=== PATIENT | female | born 1985 | race Caucasian/White ===

== ENCOUNTER 2016-12-09 19:50 | Emergency (ER) | payer OTHER ==
[2016-12-09 20:01] VITALS: TEMP 98.7
--- NOTE | 2016-12-09 20:17 | ED ---
Female Urogenital HPI - General Chief complaint: Vaginal Bleeding Stated complaint: 9 weeks /Bleeding/Abd Pain Time Seen by Provider: 12/09/16 20:04 Source: patient, RN notes reviewed Mode of arrival: ambulatory Limitations: no limitations - History of Present Illness Initial comments: 31-year-old female presents for vaginal bleeding and abdominal pain in . Patient states that she's had this for the past day or so. Patient states that she has had a confirmed IUP about 6 weeks and now she is 9 weeks . Patient states that she is a . Patient states she is currently smoking. Patient states that the bleeding has been very mild and spotting. Patient states that she was concerned due to the fact that it continued for the past day so she thought that she should be seen. Patient states that there is no other symptoms at this time. Patient denies any other vaginal discharge she denies any changes in urination any nausea or vomiting. Patient denies any recent fever, chills, shortness of breath, chest pain, back pain, nausea vomiting, numbness or tingling, dysuria or hematuria, constipation or diarrhea, headaches or visual changes, or any other current symptoms. - Related Data Home Medications Medication Instructions Recorded Confirmed Albuterol Inhaler [Ventolin Hfa 1 - 2 puff INHALATION RT-Q6H PRN 12/09/16 Inhaler] Allergies Allergy/AdvReac Type Severity Reaction Status Date / Time No Known Allergies Allergy Verified 12/09/16 20:16 Review of Systems ROS Statement: Those systems with pertinent positive or pertinent negative responses have been documented in the HPI. ROS Other: All systems not noted in ROS Statement are negative. Past Medical History Past Medical History: No Reported History Additional Past Medical History / Comment(s): chronic back pain History of Any Multi-Drug Resistant Organisms: None Reported Past Surgical History: No Surgical Hx Reported Past Psychological History: Anxiety, Bipolar, Depression, Panic Disorder, Schizoaffective Disorder Smoking Status: Current every day smoker Past Alcohol Use History: Occasional Past Drug Use History: Cocaine, Heroin, IV Drug Use, Marijuana, Methamphetamine , Opiates, Prescription Drug Abuse General Exam - General Exam Comments Initial Comments: General: The patient is awake and alert, in no distress, and does not appear acutely ill. Eye: Pupils are equal, round and reactive to light, extra-ocular movements are intact; there is normal conjunctiva bilaterally. No signs of icterus. Ears, nose, mouth and throat: There are moist mucous membranes and no oral lesions. Neck: The neck is supple, there is no tenderness. Cardiovascular: There is a regular rate and rhythm. No murmur, rub or gallop is appreciated. Respiratory: Lungs are clear to auscultation, respirations are non-labored, breath sounds are equal. No wheezes, stridor, rales, or rhonchi. Gastrointestinal: Soft, non-distended, non-tender abdomen without masses or organomegaly noted. There is no rebound or guarding present. No CVA tenderness. Bowel sounds are unremarkable. Back: There is no tenderness to palpation in the midline. There is no obvious deformity. No rashes noted. Musculoskeletal: Normal ROM, no tenderness, There is no pedal edema. There is no calf tenderness or swelling. Sensation intact. Pulses equal bilaterally 2+. Neurological: CN II-XII intact, There are no obvious motor or sensory deficits. Coordination appears grossly intact. Speech is normal. Skin: Skin is warm and dry and no rashes or lesions are noted. Psychiatric: Cooperative, appropriate mood & affect, normal judgment. Limitations: no limitations Course Vital Signs 12/09/16 19:58 Temperature 98.7 F Pulse Rate 97 Respiratory 18 Rate Blood Pressure 120/56 O2 Sat by Pulse 100 Oximetry Medical Decision Making - Medical Decision Making 31-year-old female presents for vaginal bleeding in . At this time ultrasound is read as showing subchorionic bleed. This time patient was educated about this. She will undergo STD testing she states she'll do the breast of the testing with the [employer]. Discussed return parameters discussed. We discussed follow-up on results. Patient stated that she understood all questions have been answered. She will be discharged. - Lab Data Result diagrams: 12/09/16 20:16 12/09/16 20:16 Lab Results 12/09/16 12/09/16 12/09/16 Range/Units 20:16 20:16 20:16 WBC 6.6 (3.8-10.6) k/uL RBC 4.25 (3.80-5.40) m/uL Hgb 13.2 (11.4-16.0) gm/dL Hct 38.4 (34.0-46.0) % MCV 90.3 (80.0-100.0) fL MCH 31.1 (25.0-35.0) pg MCHC 34.4 (31.0-37.0) g/dL RDW 13.2 (11.5-15.5) % Plt Count 251 (150-450) k/uL Neutrophils % 66 % Lymphocytes % 25 % Monocytes % 4 % Eosinophils % 2 % Basophils % 0 % Neutrophils # 4.4 (1.3-7.7) k/uL Lymphocytes # 1.7 (1.0-4.8) k/uL Monocytes # 0.3 (0-1.0) k/uL Eosinophils # 0.1 (0-0.7) k/uL Basophils # 0.0 (0-0.2) k/uL Sodium 138 (137-145) mmol/L Potassium 3.8 (3.5-5.1) mmol/L Chloride 109 H (98-107) mmol/L Carbon Dioxide 20 L (22-30) mmol/L Anion Gap 9 mmol/L BUN 6 L (7-17) mg/dL Creatinine 0.50 L (0.52-1.04) mg/dL Est GFR (MDRD) Af Amer >60 (>60 ml/min/1.73 sqM) Est GFR (MDRD) Non-Af >60 (>60 ml/min/1.73 sqM) Glucose 100 H (74-99) mg/dL Calcium 9.4 (8.4-10.2) mg/dL Total Bilirubin 0.3 (0.2-1.3) mg/dL AST 23 (14-36) U/L ALT 42 (9-52) U/L Alkaline Phosphatase 50 (38-126) U/L Total Protein 6.3 (6.3-8.2) g/dL Albumin 3.7 (3.5-5.0) g/dL Urine Color Urine Appearance (Clear) Urine pH (5.0-8.0) Ur Specific [place] (1.001-1.035) Urine Protein (Negative) Urine Glucose (UA) (Negative) Urine Ketones (Negative) Urine Blood (Negative) Urine Nitrate (Negative) Urine Bilirubin (Negative) Urine Urobilinogen (<2.0) mg/dL Ur Leukocyte Esterase (Negative) Urine RBC (0-5) /hpf Urine WBC (0-5) /hpf Ur Squamous Epith Cells (0-4) /hpf Urine Bacteria (None) /hpf Urine Mucus (None) /hpf Blood Type A Positive Blood Type Recheck No 12/09/16 Range/Units 21:20 WBC (3.8-10.6) k/uL RBC (3.80-5.40) m/uL Hgb (11.4-16.0) gm/dL Hct (34.0-46.0) % MCV (80.0-100.0) fL MCH (25.0-35.0) pg MCHC (31.0-37.0) g/dL RDW (11.5-15.5) % Plt Count (150-450) k/uL Neutrophils % % Lymphocytes % % Monocytes % % Eosinophils % % Basophils % % Neutrophils # (1.3-7.7) k/uL Lymphocytes # (1.0-4.8) k/uL Monocytes # (0-1.0) k/uL Eosinophils # (0-0.7) k/uL Basophils # (0-0.2) k/uL Sodium (137-145) mmol/L Potassium (3.5-5.1) mmol/L Chloride (98-107) mmol/L Carbon Dioxide (22-30) mmol/L Anion Gap mmol/L BUN (7-17) mg/dL Creatinine (0.52-1.04) mg/dL Est GFR (MDRD) Af Amer (>60 ml/min/1.73 sqM) Est GFR (MDRD) Non-Af (>60 ml/min/1.73 sqM) Glucose (74-99) mg/dL Calcium (8.4-10.2) mg/dL Total Bilirubin (0.2-1.3) mg/dL AST (14-36) U/L ALT (9-52) U/L Alkaline Phosphatase (38-126) U/L Total Protein (6.3-8.2) g/dL Albumin (3.5-5.0) g/dL Urine Color Yellow Urine Appearance Cloudy H (Clear) Urine pH 6.5 (5.0-8.0) Ur Specific [place] 1.017 (1.001-1.035) Urine Protein Trace H (Negative) Urine Glucose (UA) Negative (Negative) Urine Ketones Negative (Negative) Urine Blood Small H (Negative) Urine Nitrate Negative (Negative) Urine Bilirubin Negative (Negative) Urine Urobilinogen <2.0 (<2.0) mg/dL Ur Leukocyte Esterase Negative (Negative) Urine RBC 6 H (0-5) /hpf Urine WBC 3 (0-5) /hpf Ur Squamous Epith Cells 9 H (0-4) /hpf Urine Bacteria Rare H (None) /hpf Urine Mucus Rare H (None) /hpf Blood Type Blood Type Recheck - Radiology Data Radiology results: report reviewed, image reviewed Disposition Clinical Impression: , Subchorionic bleed Disposition: HOME SELF-CARE Condition: Stable Instructions: (ED) Additional Instructions: Please use medication as discussed. Please follow up with family doctor if symptoms have not improved over the next two days. Please return to the emergency room if your symptoms increase or worsen or for any other concerns. Referrals: None,Stated [Primary Care Provider] - 1-2 days Livia Taylor MD [STAFF PHYSICIAN] - 1-2 days Time of Disposition: 21:50
[2016-12-09 21:13] LABS: Basophils % (A) 0 %; CH 31.6; CHCM 35.2; Eosinophils # (A) 0.1 k/uL (0-0.7); Eosinophils % (A) 2 %; HCT 38.4 % (34.0-46.0); HDW 2.51; HGB 13.2 gm/dL (11.4-16.0); Luc # (Auto) 0.17; Luc % (Auto) 3; Lymphocytes # (A) 1.7 k/uL (1.0-4.8); Lymphocytes % (A) 25 %; MCH 31.1 pg (25.0-35.0); MCHC 34.4 g/dL (31.0-37.0); MCV 90.3 fL (80.0-100.0); Monocytes # (A) 0.3 k/uL (0-1.0); Monocytes % (A) 4 %; Neutrophils # (A) 4.4 k/uL (1.3-7.7); Neutrophils % (A) 66 %; RBC 4.25 m/uL (3.80-5.40); RDW 13.2 % (11.5-15.5); WBC 6.6 k/uL (3.8-10.6); WBC (Perox) 7.32
--- NOTE | 2016-12-09 21:21 | US ---
EXAMINATION TYPE: US OB <= 14 wk fetus DATE OF EXAM: 12/09/2016 9:08 PM COMPARISON: NONE CLINICAL HISTORY: Pain. Spotting EXAM PERFORMED: Transabdominal (TA) EXAM MEASUREMENTS: GESTATIONAL AGE / DATING Physician Established: Not established Dates by LMP: (10 weeks/2 days) EDC: 07/05/2017 Dates by First Scan: No previous Dates by Current Scan for: (9 weeks/2 days) EDC: 07/12/2017 MATERNAL ANATOMY Uterus: 11.9 x 7.1 x 8.0 cm Right Ovary: 3.0 x 1.9 x 2.2 cm Left Ovary: 2.8 x 1.9 x 2.1 cm Post CDS / Adnexa: wnl Presence of free fluid: No Presence of corpus luteal cyst: Not on this exam Presence of subchorionic bleed: Yes, measuring 2.3 x 1.6 x 1.2 cm GESTATION / SURVEY CRL: 2.52 cm (9 weeks/2 days) Yolk Sac (normal less than 6mm): 3 mm Heart Rate: 171 bpm Rhythm: Normal IUP: Viable IUP Date of LMP: 09/28/2016 Beta HcG (if available): Not available at time of exam TECHNOLOGIST IMPRESSION: Viable IUP with an WANDER of 07/12/2017. Probable subchorionic bleed measur ing 2.3 x 1.6 x 1.2 cm IMPRESSION: There is a small fluid collection suggestive of a subchorionic hemorrhage that measures 2.5 x 1 cm. The ultrasound gestational age is 9 weeks 2 days.
[2016-12-09 21:30] LABS: ALT 42 U/L (9-52); AST 23 U/L (14-36); Alkaline Phosphatase 50 U/L (38-126); Anion Gap 9 mmol/L; Blood Urea Nitrogen 6 mg/dL (7-17); Calcium 9.4 mg/dL (8.4-10.2); Carbon Dioxide 20 mmol/L (22-30); Chloride 109 mmol/L (98-107); Glucose 100 mg/dL (74-99); Non-African American GFR(MDRD) >60 (>60 ml/min/1.73 sqM); Potassium 3.8 mmol/L (3.5-5.1); Sodium 138 mmol/L (137-145); Total Bilirubin 0.3 mg/dL (0.2-1.3); Total Protein 6.3 g/dL (6.3-8.2)
[2016-12-09 21:45] LABS: Appearance,Urine Cloudy (Clear); Bacteria,Urine Rare /hpf; Bilirubin,Urine Negative (Negative); Glucose,Urine (UA) Negative (Negative); Ketones,Urine Negative (Negative); Leukocyte Esterase,Urine Negative (Negative); Mucus,Urine Rare /hpf; Nitrite,Urine Negative (Negative); PH, Urine 6.5 (5.0-8.0); Particle Count 9534; Protein,Urine Trace (Negative); RBC,Urine 6 /hpf (0-5); Specific Gravity,Urine 1.017 (1.001-1.035); Squamous Epithelial Cell,Urine 9 /hpf (0-4); UA Billing (MACRO vs. MICRO) MICRO; Urobilinogen,Urine <2.0 mg/dL (<2.0); WBC,Urine 3 /hpf (0-5)
[2016-12-09 22:05] VITALS: BP 112/65; PULSE 86; RESP 16
== END 2016-12-09 22:05 | disposition home or self-care (01) ==
LOC: EC 19:50
DX: O99.411 Diseases of the circulatory system complicating pregnancy, first trimester (principal); I60.9 Nontraumatic subarachnoid hemorrhage, unspecified; Z3A.09 9 weeks gestation of pregnancy; F17.200 Nicotine dependence, unspecified, uncomplicated
CPT/HCPCS: 36415; 76801; 80053; 81001; 84702; 85025; 86900; 86901; 87070; 87086; 87205; 87491; 87591; 87808; 99284

== ENCOUNTER → 2017-02-05 | Outpatient (CLI) | payer OTHER ==
--- NOTE | 2017-02-05 14:11 | US ---
EXAMINATION TYPE: US OB >= 14 wk fetus DATE OF EXAM: 02/05/2017 12:55 PM COMPARISON: 12/09/2016 CLINICAL HISTORY: 31-year-old female Z34.00 Supervision of first . Anatomy scan. TECHNIQUE: Transabdominal (TA) FINDINGS: GESTATIONAL AGE / DATING Physician Established: (18 weeks/4 days) EDC: 07/05/2017 Dates by LMP: (18 weeks/4 days) EDC: 07/05/2017 Dates by First Scan: (17 weeks/4 days) EDC: 07/12/2017 Dates by Current Scan: (17 weeks/2 days +/- 1W0D) EDC: 07/14/2017 SURVEY IUP: Single PLACENTA: Fundal/Anterior/Posterior PREVIA: No Previa OSMAR: 11.6 cm Normal CERVICAL LENGTH (transabdominal: norm > 3.0cm): 3.6 cm BIOMETRY PRESENTATION: Vertex LIE: Longitudinal BPD: 3.7 cm 17 weeks / 2 days HC: 13.5 cm 17 weeks / 0 days AC: 11.6 cm 17 weeks / 3 days FL: 2.4 cm 17 weeks / 2 days ESTIMATED WEIGHT IN GRAMS: 188.9 grams ESTIMATED WEIGHT IN LBS/OZS: 0 lbs. 7 oz. 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 Single live intrauterine with estimated gestational age of 18 weeks 4 days by LMP. Curre nt ultrasound biometry is smaller and slightly discordant (17 weeks 2 days) placing the child at <3rd percentile. However, we note that there has been appropriate interval growth from the patient's fir st scan on 12/09/2016. Correlate for accuracy of LMP. 2. survey not performed at this time due to measurements less than 18 weeks. Patient can return between 18 and 20 weeks for survey.
== END | disposition home or self-care (01) ==
LOC: RADUSWWP 12:14
PROVIDERS: ATTEND Obstetrics & Gynecology
DX: Z34.00 Encounter for supervision of normal first pregnancy, unspecified trimester (principal); Z3A.18 18 weeks gestation of pregnancy
CPT/HCPCS: 76805

== ENCOUNTER → 2017-03-05 | Outpatient (CLI) | payer OTHER ==
--- NOTE | 2017-03-05 13:45 | US ---
EXAMINATION TYPE: US OB anatomy transabd DATE OF EXAM: 03/05/2017 1:01 PM COMPARISON: US HISTORY: Z34.00 Encounter for supervision of normal pregnan Anatomy scan TECHNIQUE: Transabdominal (TA) EXAM MEASUREMENTS: GESTATIONAL AGE / DATING Physician Established: (22 weeks/4 days) EDC: 07/05/2017 Dates by LMP: (22 weeks/4 days) EDC: 07/05/2017 Dates by First Scan: (21 weeks/4 days) EDC: 07/12/2017 Dates by Current Scan for: (21 weeks/2 days) EDC: 07/14/2017 SURVEY IUP: Single PLACENTA: Anterior/Fundal PREVIA: No previa OSMAR: 14.1 cm Normal CERVICAL LENGTH (transabdominal: norm > 3.0cm): 3.3 cm BIOMETRY PRESENTATION: Vertex LIE: Longitudinal BPD: 5.1 cm 21 weeks / 4 days HC: 18.6 cm 21 weeks / 0 days AC: 15.8 cm 21 weeks / 0 days FL: 3.6 cm 21 weeks / 2 days ESTIMATED WEIGHT IN GRAMS: 398 grams ESTIMATED WEIGHT IN LBS/OZS: 0 lbs. 14 oz. WEIGHT PERCENTAGE BASED ON ESTABLISHED DATE: <3 % HC/AC: 1.18 Normal FL/AC: 22.39 Normal HEART RATE: 161 bpm RHYTHM: Normal ANATOMY SEEN (within normal limits): * Lateral Vent (< 1 cm) 0.7 cm * Cisterna Magna (< 1.1 cm) 0.5 cm * Nuchal Fold (< 0.6 cm) 0.3 cm * Cerebellum (varies with age) 2.2 cm Choroid Plexus (bilateral) Midline Falx Cavus Septi Pellucidi Four Chamber Heart Outflow tracts: LVOT/RVOT Stomach Situs Nose / Lips Diaphragm Kidneys (bilateral) Bladder Cord Insert Three Vessel Cord Longitudinal Spine Transverse Spine Arms (bilateral) Legs (bilateral) MATERNAL WALL MEASUREMENT: 4.6 cm from skin to anterior uterine wall (if exam limited due to body muniz bitus). Abnormal results called to doctors office: measuring in the <3% IMPRESSION: Viable single IUP measuring 21 weeks 2 days with a heart rate of 161bpm and an estimated delivery walt e of 07/14/2017 . See above regarding weight percentile with results called to 's office.
== END | disposition home or self-care (01) ==
LOC: RADUSWWP 12:09
PROVIDERS: ATTEND Obstetrics & Gynecology
DX: Z34.00 Encounter for supervision of normal first pregnancy, unspecified trimester (principal); Z3A.21 21 weeks gestation of pregnancy
CPT/HCPCS: 76811

== ENCOUNTER 2017-03-26 15:46 | Emergency (ER) | payer OTHER ==
[2017-03-26 15:55] VITALS: RESP 18; TEMP 98.1
--- NOTE | 2017-03-26 16:46 | ED ---
General Adult HPI - General Chief complaint: Fall Stated complaint: FALL DOWN STEPS, 26 WEEKS PREG Time Seen by Provider: 03/26/17 16:20 Source: patient, EMS, RN notes reviewed, old records reviewed Mode of arrival: EMS Limitations: no limitations - History of Present Illness Initial comments: Chief complaint history of present illness a 29-year-old female reports that she tripped and fell down 7 or 8 steps carpeted. Because her laundry in the way. Patient is 26 weeks . Denies any head or neck injury. No loss of consciousness. Complains discomfort to her low back and right knee. Patient does not want x-rays of her lumbar spine versus a history of degenerative disc disease. She complains discomfort to the right knee. X-rays were done with a lead apron over the abdomen. Patient states she thinks she's felt the baby move. After x-ray the patient will be sent to labor and delivery . - Related Data Home Medications Medication Instructions Recorded Confirmed Albuterol Inhaler [Ventolin Hfa 1 - 2 puff INHALATION RT-Q6H PRN 12/09/16 Inhaler] Loratadine [Claritin] 10 mg PO DAILY 03/26/17 03/26/17 Sca-Scwz-Cezrm Acid 1 cap PO DAILY 03/26/17 03/26/17 [-U Capsule (formulary)] Allergies Allergy/AdvReac Type Severity Reaction Status Date / Time No Known Allergies Allergy Verified 03/26/17 16:07 Review of Systems ROS Statement: Those systems with pertinent positive or pertinent negative responses have been documented in the HPI. Review of systems no headache or neck pain no visual acuity changes no shoulder or elbow or arm pain at this time. No abdominal pain she states she has felt the baby move. Complains low back discomfort. And right knee pain. No swelling noted. No neuro deficits all systems reviewed. Past medical problems patient is as noted above 26 weeks . Chronic back pain, degenerative disc disease. Denies a surgical history. She has had a history in the past of cocaine, heroin IV drug abuse including methamphetamine and opiates. As well as prescription drug abuse. Denies ALLERGIES. Family history not respiratory. ROS Other: All systems not noted in ROS Statement are negative. Past Medical History Past Medical History: No Reported History Additional Past Medical History / Comment(s): chronic back pain History of Any Multi-Drug Resistant Organisms: None Reported Past Surgical History: No Surgical Hx Reported Past Psychological History: Anxiety, Bipolar, Depression, Panic Disorder, Schizoaffective Disorder Smoking Status: Current every day smoker Past Alcohol Use History: Occasional Past Drug Use History: Cocaine, Heroin, IV Drug Use, Marijuana, Methamphetamine , Opiates, Prescription Drug Abuse General Exam - General Exam Comments Initial Comments: General: The patient is awake and alert, complains or right knee pain. Vital signs temp 98.1 pulse 84 respiratory rate 18 pulse ox 90% room air blood pressure 133/63 Eye: Pupils are equal, round and reactive to light, extra-ocular movements are intact ; there is normal conjunctiva bilaterally. No signs of icterus. Ears, nose, mouth and throat: There are moist mucous membranes .. Neck: The neck is supple, there is no tenderness .. Cardiovascular: There is a regular rate and rhythm. No murmur, rub or gallop is appreciated. Respiratory: Lungs are clear to auscultation, respirations are non-labored, breath sounds are equal. No wheezes, stridor, rales, or rhonchi. Gastrointestinal: Soft, non-distended, non-tender abdomen without masses or organomegaly noted. There is no rebound or guarding present. No CVA tenderness. Bowel sounds are unremarkable. Back: History chronic back pain and degenerative disc disease. States when she fell she did injure her back but does not want x-rays because of the baby. Final numbness or tingling to the extremities. Musculoskeletal: Patient complains discomfort to the right knee. And discomfort with varus valgus and drawer testing. No bruising noted patient thinks is mildly swollen. Negative anterior drawer test. Neurovascular status of foot intact. Neurological: No evidence of her complaints of any neuro deficits. Skin: Skin is warm and dry and no rashes or lesions are noted. Limitations: no limitations Course Vital Signs 03/26/17 15:52 Temperature 98.1 F Pulse Rate 84 Respiratory 18 Rate Blood Pressure 133/63 O2 Sat by Pulse 98 Oximetry Medical Decision Making - Medical Decision Making X-ray of the right knee was done and reviewed by radiologist his impression is joint spaces are preserved. No acute fractures are evident. Soft tissues are normal. No joint effusion is evident. Impression; normal 3 view right knee. As read by Dr. Vizcaino Patient was given ice advised to elevate she was given because she requested Tylenol emergency room. The patient will be going up to labor and delivery for baby monitoring. Disposition Clinical Impression: Contusion of right knee Disposition: HOME SELF-CARE Condition: Fair Instructions: Knee Pain (ED) Additional Instructions: Apply ice Esperanza use Tylenol for pain keep elevated follow-up with family physician. Referrals: Sherin Valdez MD [Primary Care Provider] - 1-2 days Time of Disposition: 17:27
--- NOTE | 2017-03-26 16:57 | XR ---
EXAMINATION TYPE: XR knee complete RT DATE OF EXAM: 03/26/2017 COMPARISON: NONE HISTORY: Pain TECHNIQUE: Three-view right knee FINDINGS: Joint spaces preserved. No acute fractures are evident. Soft tissues are normal. No joint e ffusion is evident. IMPRESSION: 1. Normal three-view right knee
[2017-03-26] MEDS ORDERED: ACETAMINOPHEN TAB 500 MG TAB PO STA (17:23)
[2017-03-26 17:36] VITALS: BP 119/56; PULSE 64
== END 2017-03-26 17:36 | disposition home or self-care (01) ==
LOC: EC 15:46
DX: O9A.212 Injury, poisoning and certain other consequences of external causes complicating pregnancy, second trimester (principal); S80.01XA Contusion of right knee, initial encounter; O99.89 Other specified diseases and conditions complicating pregnancy, childbirth and the puerperium; M54.5 Low back pain; O99.332 Smoking (tobacco) complicating pregnancy, second trimester; F17.200 Nicotine dependence, unspecified, uncomplicated; Z3A.26 26 weeks gestation of pregnancy; Z79.899 Other long term (current) drug therapy
CPT/HCPCS: 99284

== ENCOUNTER 2017-03-26 17:44 | Outpatient (CLI) | payer OTHER ==
[2017-03-26 20:08] VITALS: BP 123/60; PULSE 71; RESP 16; TEMP 97
== END 2017-03-26 19:36 | disposition home or self-care (01) ==
LOC: FBPOP 17:44
PROVIDERS: ATTEND Obstetrics & Gynecology
DX: O26.92 Pregnancy related conditions, unspecified, second trimester (principal); Z3A.25 25 weeks gestation of pregnancy
CPT/HCPCS: 99213

== ENCOUNTER 2017-05-30 09:30 | Emergency (ER) | payer OTHER ==
--- NOTE | 2017-05-30 10:23 | ED ---
URI HPI - General Chief Complaint: Upper Respiratory Infection Stated Complaint: coughing, vomiting Time Seen by Provider: 05/30/17 09:47 Source: patient, RN notes reviewed Mode of arrival: ambulatory Limitations: no limitations - History of Present Illness Initial Comments: 31-year-old female presented emergency department with chief complaint of cough and cold symptoms that started last night. Patient states she has not tried any auzy-eps-mokfbbx cough and cold medications. Denies any fevers or chills. Patient complains of a headache but has not taken Tylenol. Patient is able to . She states she continues to smoke. Patient states that she's had no nausea vomiting diarrhea constipation denies any vaginal bleeding or vaginal discharge. No dysuria, hematuria. - Related Data Home Medications Medication Instructions Recorded Confirmed Albuterol Inhaler [Ventolin Hfa 1 - 2 puff INHALATION RT-Q6H PRN 12/09/16 Inhaler] Loratadine [Claritin] 10 mg PO DAILY 03/26/17 03/26/17 Lku-Rbht-Udpnj Acid 1 cap PO DAILY 03/26/17 03/26/17 [-U Capsule (formulary)] Albuterol Nebulized [Ventolin 2.5 mg INHALATION RT-Q6H PRN 05/30/17 05/30/17 Nebulized] Previous Rx's Medication Instructions Recorded diphenhydrAMINE [Benadryl] 50 mg PO QID #20 capsule 05/30/17 guaiFENesin-DM 100-10MG/5ML 10 ml PO Q6HR #120 ml 05/30/17 [Robitussin DM] Allergies Allergy/AdvReac Type Severity Reaction Status Date / Time No Known Allergies Allergy Verified 05/30/17 09:45 Review of Systems ROS Statement: Those systems with pertinent positive or pertinent negative responses have been documented in the HPI. ROS Other: All systems not noted in ROS Statement are negative. Past Medical History Past Medical History: No Reported History Additional Past Medical History / Comment(s): chronic back pain History of Any Multi-Drug Resistant Organisms: None Reported Past Surgical History: No Surgical Hx Reported Past Psychological History: Anxiety, Bipolar, Depression, Panic Disorder, Schizoaffective Disorder Smoking Status: Current every day smoker General Exam General appearance: alert, in no apparent distress Head exam: Present: atraumatic, normocephalic, normal inspection Eye exam: Present: normal appearance, PERRL, EOMI. Absent: scleral icterus, conjunctival injection, periorbital swelling ENT exam: Present: mucous membranes moist, TM's normal bilaterally, normal external ear exam. Absent: normal exam (Mild rhinorrhea), normal oropharynx ( Some postnasal drainage,) Neck exam: Present: normal inspection. Absent: tenderness, meningismus, lymphadenopathy Respiratory exam: Present: normal lung sounds bilaterally. Absent: respiratory distress, wheezes, rales, rhonchi, stridor Cardiovascular Exam: Present: regular rate, normal rhythm, normal heart sounds. Absent: systolic murmur, diastolic murmur, rubs, gallop, clicks Skin exam: Present: warm, dry, intact, normal color. Absent: rash Course Vital Signs 05/30/17 09:43 Temperature 97.9 F Pulse Rate 113 H Respiratory 18 Rate Blood Pressure 131/64 O2 Sat by Pulse 100 Oximetry Medical Decision Making - Medical Decision Making 31-year-old female presented for URI symptoms. This appears or viral URIs is no evidence of acute bacterial infection at this time. Patient's symptoms started last night. She be given medication states . Return parameters were discussed. Disposition Clinical Impression: Upper respiratory infection Disposition: HOME SELF-CARE Condition: Stable Instructions: Upper Respiratory Infection (ED) Additional Instructions: Please return to the Emergency Department if symptoms worsen or any other concerns. Prescriptions: diphenhydrAMINE [Benadryl] 50 mg PO QID #20 capsule guaiFENesin-DM 100-10MG/5ML [Robitussin DM] 10 ml PO Q6HR #120 ml Referrals: None,Stated [Primary Care Provider] - 1-2 days Time of Disposition: 10:29
[2017-05-30 10:47] VITALS: BP 121/66; PULSE 93; RESP 20; TEMP 97.8
== END 2017-05-30 10:47 | disposition home or self-care (01) ==
LOC: EC 09:30
DX: O99.513 Diseases of the respiratory system complicating pregnancy, third trimester (principal); J06.9 Acute upper respiratory infection, unspecified; O99.333 Smoking (tobacco) complicating pregnancy, third trimester; F17.200 Nicotine dependence, unspecified, uncomplicated; Z79.899 Other long term (current) drug therapy; Z3A.32 32 weeks gestation of pregnancy
CPT/HCPCS: 99283

== ENCOUNTER → 2017-06-03 | Outpatient (CLI) | payer OTHER ==
--- NOTE | 2017-06-03 14:07 | US ---
EXAMINATION TYPE: US OB >= 14 wk fetus third trimester DATE OF EXAM: 06/03/2017 COMPARISON: US second trimester February 05, 2017 CLINICAL HISTORY: Z34.90 Encounter for supervision of normal pregnancyt TECHNIQUE: Transabdominal (TA) GESTATIONAL AGE / DATING Physician Established: (35 weeks/3 days) EDC: 07/05/2017 Dates by LMP: (35 weeks/3 days) EDC: 07/05/2017 Dates by First Scan: (34 weeks/3 days) EDC: 07/12/2017 Dates by Current Scan: (33 weeks/4 days) EDC: 07/18/2017 SURVEY IUP: Single PLACENTA: Anterior PREVIA: No Previa OSMAR: 14.3 cm Normal CERVICAL LENGTH (transabdominal: norm > 3.0cm): 3.0 cm BIOMETRY PRESENTATION: Vertex LIE: Longitudinal BPD: 8.1 cm 32 weeks / 4 days HC: 30.9 cm 34 weeks / 4 days AC: 30.0 cm 34 weeks / 0 days FL: 6.3 cm 32 weeks / 5 days ESTIMATED WEIGHT IN GRAMS: 2209 grams ESTIMATED WEIGHT IN LBS/OZS: 4 lbs. 14 oz. WEIGHT PERCENTAGE BASED ON ESTABLISHED DATES: 8% HC/AC: 1.0 Normal FL/AC: 21 Normal HEART RATE: 133 bpm RHYTHM: Normal MATERNAL WALL MEASUREMENT: 4.4 cm from skin to anterior uterine wall (if exam limited due to body hab itus). Measures Small for gestational age. Single live intrauterine gestation is redemonstrated. Amniotic fluid index is within normal limits. N ormal cephalad presentation to fetus is currently seen. There is no ultrasound evidence for placenta previa. biometry measurements are congruent and felt lower limits of normal based on physician established date of confinement. Estimated weight is just below normal range. IMPRESSION: As above. Consider progress ultrasound study.
== END | disposition home or self-care (01) ==
LOC: RADUSWWP 11:50
PROVIDERS: ATTEND Obstetrics & Gynecology
DX: Z34.90 Encounter for supervision of normal pregnancy, unspecified, unspecified trimester (principal); Z3A.33 33 weeks gestation of pregnancy
CPT/HCPCS: 76805

== ENCOUNTER → 2017-07-01 | Outpatient (CLI) | payer OTHER ==
--- NOTE | 2017-07-01 14:51 | US ---
EXAMINATION TYPE: US OB >= 14 wk fetus DATE OF EXAM: 07/01/2017 COMPARISON: US dated 06/03/2017 CLINICAL HISTORY: Z34.00 Encounter for supervision of normal first p TECHNIQUE: Transabdominal (TA) GESTATIONAL AGE / DATING Physician Established: (39 weeks/3 days) EDC: 07/05/2017 Dates by LMP: (39 weeks/3 days) EDC: 07/05/2017 Dates by First Scan: (38 weeks/3 days) EDC: 07/12/2017 Dates by Current Scan: (36 weeks/5 days) EDC: 07/24/2017 SURVEY IUP: Single PLACENTA: Anterior PREVIA: No Previa OSMAR: 11.8 cm Normal CERVICAL LENGTH (transabdominal: norm > 3.0cm): 3.9 cm BIOMETRY PRESENTATION: Vertex BPD: 8.8 cm 35 weeks / 4 days HC: 32.8 cm 37 weeks / 2 days AC: 7.1 cm 36 weeks / 3 days FL: 7.1 cm 36 weeks / 3 days ESTIMATED WEIGHT IN GRAMS: 3041 grams ESTIMATED WEIGHT IN LBS/OZS: 6 lbs. 11 oz. WEIGHT PERCENTAGE BASED ON ESTABLISHED DATES: 14% HC/AC: 0.9 Normal FL/AC: 21% Normal HEART RATE: 144 bpm RHYTHM: Normal Limited survey performed. IMPRESSION: Single viable intrauterine corresponding to an ultrasound age 36 weeks 5 days with estimate d date of delivery 07/24/2017, limited survey
== END | disposition home or self-care (01) ==
LOC: RADUSWWP 13:20
PROVIDERS: ATTEND Obstetrics & Gynecology
DX: Z34.00 Encounter for supervision of normal first pregnancy, unspecified trimester (principal); Z3A.36 36 weeks gestation of pregnancy
CPT/HCPCS: 76805

== ENCOUNTER 2017-08-05 18:01 | Emergency (ER) | payer OTHER ==
[2017-08-05 18:17] VITALS: BP 133/63; PULSE 100; RESP 18; TEMP 99.1
[2017-08-05 19:01] LABS: Appearance,Urine Cloudy (Clear); Bacteria,Urine Rare /hpf; Bilirubin,Urine Negative (Negative); Glucose,Urine (UA) Negative (Negative); Ketones,Urine 1+ (Negative); Leukocyte Esterase,Urine Large (Negative); Mucus,Urine Rare /hpf; Nitrite,Urine Negative (Negative); PH, Urine 6.5 (5.0-8.0); Particle Count 2302; Protein,Urine Trace (Negative); RBC,Urine 5 /hpf (0-5); Specific Gravity,Urine 1.007 (1.001-1.035); Squamous Epithelial Cell,Urine 1 /hpf (0-4); UA Billing (MACRO vs. MICRO) MICRO; Urobilinogen,Urine <2.0 mg/dL (<2.0); WBC,Urine 127 /hpf (0-5)
[2017-08-05] MEDS ORDERED: IBUPROFEN 600 MG TAB PO STA (19:21)
--- NOTE | 2017-08-05 19:24 | ED ---
URI HPI - General Chief Complaint: Upper Respiratory Infection Stated Complaint: Poss UTI, and cough Time Seen by Provider: 08/05/17 18:24 Source: patient Mode of arrival: ambulatory Limitations: no limitations - History of Present Illness Initial Comments: 31-year-old female patient presents for evaluation of possible urinary tract infection. Patient states that she's been having dysuria, urinary frequency, urine odor, and urinary urgency for the last 2 days. She states that she has been also experiencing upper respiratory symptoms including cough, congestion, sore throat, and nasal drainage. She states she has taken [id number] cold medication which does improve her symptoms somewhat. She denies any fever or chills. She denies any sputum production or shortness of breath. She states she is feeling generally unwell. Patient denies any recent shortness breath, chest pain, abdominal pain, nausea, vomiting, diarrhea, constipation, back pain , numbness, tingling, headache, visual changes, hematuria, or any other complaints. She is one month denies any chance of . - Related Data Home Medications Medication Instructions Recorded Confirmed Loratadine [Claritin] 10 mg PO DAILY PRN 03/26/17 08/05/17 Citalopram Hydrobromide [CeleXA] 10 mg PO DAILY 08/05/17 08/05/17 HYDROcodone/APAP 10-325MG [[place] 1 tab PO TID PRN 08/05/17 08/05/17 10-325] Previous Rx's Medication Instructions Recorded Ciprofloxacin HCl [Cipro] 500 mg PO Q12HR #14 tablet 08/05/17 Ibuprofen [Motrin] 600 mg PO Q8HR PRN #30 tab 08/05/17 Allergies Allergy/AdvReac Type Severity Reaction Status Date / Time No Known Allergies Allergy Verified 08/05/17 18:51 Review of Systems ROS Statement: Those systems with pertinent positive or pertinent negative responses have been documented in the HPI. ROS Other: All systems not noted in ROS Statement are negative. Past Medical History Past Medical History: No Reported History Additional Past Medical History / Comment(s): chronic back pain History of Any Multi-Drug Resistant Organisms: None Reported Past Surgical History: No Surgical Hx Reported Past Psychological History: Anxiety, Bipolar, Depression, Panic Disorder, Schizoaffective Disorder Smoking Status: Current every day smoker Past Alcohol Use History: None Reported Past Drug Use History: Marijuana General Exam Limitations: no limitations General appearance: alert, in no apparent distress, other (this is a well- developed, well-nourished adult female patient in no acute distress. Vital signs upon presentation were temperature 99.1F, pulse 100, respirations 18, blood pressure 133/63, pulse ox 96% on room air.) Eye exam: Present: normal appearance, PERRL, EOMI. Absent: scleral icterus, conjunctival injection, periorbital swelling ENT exam: Present: normal exam, mucous membranes moist, TM's normal bilaterally. Absent: normal oropharynx (Oropharyngeal erythema. No tonsillar swelling or exudate noted.) Neck exam: Present: normal inspection. Absent: tenderness, meningismus, lymphadenopathy Respiratory exam: Present: normal lung sounds bilaterally. Absent: respiratory distress, wheezes, rales, rhonchi, stridor Cardiovascular Exam: Present: regular rate, normal rhythm, normal heart sounds. Absent: systolic murmur, diastolic murmur, rubs, gallop, clicks GI/Abdominal exam: Present: soft, normal bowel sounds. Absent: distended, tenderness, guarding, rebound, rigid Extremities exam: Present: normal inspection, full ROM, normal capillary refill. Absent: tenderness, pedal edema, joint swelling, calf tenderness Back exam: Present: normal inspection, CVA tenderness (L). Absent: CVA tenderness (R) Neurological exam: Present: alert, oriented X3, CN II-XII intact Psychiatric exam: Present: normal affect, normal mood Skin exam: Present: warm, dry, intact, normal color. Absent: rash Course Vital Signs 08/05/17 18:13 Temperature 99.1 F Pulse Rate 100 Respiratory 18 Rate Blood Pressure 133/63 O2 Sat by Pulse 96 Oximetry Medical Decision Making - Medical Decision Making 31-year-old female patient presents for evaluation of possible urinary tract infection and upper respiratory symptoms. Urinalysis did show a cloudy appearance, trace protein, 1+ ketones, small amount of blood, large leukocyte E[place]ace, 127 white blood cells, rare white blood cell clumps, rare bacteria, and rare mucus. HCG was negative. Patient's lungs are clear to auscultation. She denies any shortness of breath, chest pain, or sputum production. Symptoms are consistent with viral upper respiratory symptoms. She will be discharged home with a prescription for Cipro as she does have some mild CVA tenderness and a mildly elevated temperature. She is instructed to increase her fluid intake. She states she is not breast-feeding. She is instructed to follow-up with her primary care physician for recheck in 1-2 days. She is instructed to return here immediately for any new, worsening, or concerning symptoms. She verbalizes understanding and agrees this plan. - Lab Data Lab Results 08/05/17 08/05/17 Range/Units 18:54 18:54 Urine Color Yellow Urine Appearance Cloudy H (Clear) Urine pH 6.5 (5.0-8.0) Ur Specific [place] 1.007 (1.001-1.035) Urine Protein Trace H (Negative) Urine Glucose (UA) Negative (Negative) Urine Ketones 1+ H (Negative) Urine Blood Small H (Negative) Urine Nitrite Negative (Negative) Urine Bilirubin Negative (Negative) Urine Urobilinogen <2.0 (<2.0) mg/dL Ur Leukocyte Esterase Large H (Negative) Urine RBC 5 (0-5) /hpf Urine WBC 127 H (0-5) /hpf Urine WBC Clumps Rare H (None) /hpf Ur Squamous Epith Cells 1 (0-4) /hpf Urine Bacteria Rare H (None) /hpf Urine Mucus Rare H (None) /hpf Urine HCG, Qual Not Detected (Not Detectd) Disposition Clinical Impression: Urinary tract infection, Viral upper respiratory illness Disposition: HOME SELF-CARE Condition: Good Instructions: Urinary Tract Infection in Women (ED), Upper Respiratory Infection (ED) Additional Instructions: Take medications as directed. Increase fluids. Rest. Follow up with her primary care physician for recheck in 1-2 days. Return here immediately for any new, worsening, or concerning symptoms. Prescriptions: Ciprofloxacin HCl [Cipro] 500 mg PO Q12HR #14 tablet Ibuprofen [Motrin] 600 mg PO Q8HR PRN #30 tab PRN Reason: Pain Referrals: Sherin Valdez MD [Primary Care Provider] - 1-2 days Time of Disposition: 19:23
== END 2017-08-05 19:33 | disposition home or self-care (01) ==
LOC: EC 18:01
DX: N39.0 Urinary tract infection, site not specified (principal); J06.9 Acute upper respiratory infection, unspecified; F31.9 Bipolar disorder, unspecified; F41.0 Panic disorder [episodic paroxysmal anxiety]; F25.9 Schizoaffective disorder, unspecified; F17.200 Nicotine dependence, unspecified, uncomplicated; Z79.899 Other long term (current) drug therapy
CPT/HCPCS: 81001; 81025; 87077; 87086; 87186; 99283

== ENCOUNTER 2017-09-20 16:15 | Emergency (ER) | payer OTHER ==
[2017-09-20 16:37] VITALS: BP 133/82; PULSE 98; RESP 16; TEMP 97.6
--- NOTE | 2017-09-20 16:38 | ED ---
General Adult HPI - General Chief complaint: Recheck/Abnormal Lab/Rx Stated complaint: Plan B Time Seen by Provider: 09/20/17 16:18 Source: patient, RN notes reviewed Mode of arrival: ambulatory Limitations: no limitations - History of Present Illness Initial comments: This is a 32-year-old female who presents to the emergency Department with request for Plan B. Patient states she has Medicaid and does not want to have to pay for it [id number]. She states that she gave to a child 2 months ago. Her first period after delivery started on September 09 and ended a few days ago. She states that last night (<24 hours ago) she had unprotected sex with her same partner. She states she was drinking at the time so did not use contraception. Patient states she does not believe she is at this time. Denies fever, chills, chest pain, shortness of breath, abdominal pain, nausea or vomiting, constipation or diarrhea, dysuria or hematuria, numbness or tingling, headache or vision changes. - Related Data Home Medications Medication Instructions Recorded Confirmed Loratadine [Claritin] 10 mg PO DAILY PRN 03/26/17 08/05/17 Citalopram Hydrobromide [CeleXA] 10 mg PO DAILY 08/05/17 08/05/17 HYDROcodone/APAP 10-325MG [[place] 1 tab PO TID PRN 08/05/17 08/05/17 10-325] Previous Rx's Medication Instructions Recorded Ciprofloxacin HCl [Cipro] 500 mg PO Q12HR #14 tablet 08/05/17 Ibuprofen [Motrin] 600 mg PO Q8HR PRN #30 tab 08/05/17 Allergies Allergy/AdvReac Type Severity Reaction Status Date / Time No Known Allergies Allergy Verified 09/20/17 16:28 Review of Systems ROS Statement: Those systems with pertinent positive or pertinent negative responses have been documented in the HPI. ROS Other: All systems not noted in ROS Statement are negative. Past Medical History Past Medical History: No Reported History Additional Past Medical History / Comment(s): chronic back pain History of Any Multi-Drug Resistant Organisms: None Reported Past Surgical History: No Surgical Hx Reported Past Psychological History: Anxiety, Bipolar, Depression, Panic Disorder, Schizoaffective Disorder Smoking Status: Current every day smoker Past Alcohol Use History: None Reported Past Drug Use History: Marijuana General Exam - General Exam Comments Initial Comments: General: Awake and alert, well-developed; in no apparent distress. Sitting Cambodian style on ED stretcher. HEENT: Head atraumatic, normocephalic. Pupils are equal, round and reactive to light. Extraocular movements intact. Oropharynx moist without erythema or exudate. Neck: Supple. Normal ROM. Cardiovascular: Regular rate and rhythm. No murmurs, rubs or gallops. Chest symmetrical. Respiratory: Lungs clear to auscultation bilaterally. No wheezes, rales or rhonchi. Normal respiratory effort with no use of accessory muscles. Musculoskeletal: Normal ROM, no tenderness bilateral upper and lower extremities. Ambulating normally. Skin: [place], warm and dry without rashes or lesions. Neurological: Alert and oriented x3. CN II-XII grossly intact. Speech is fluent and answers are appropriate. No focal neuro deficits. Psychiatric: Normal mood and affect. No overt signs of depression or anxiety noted. Limitations: no limitations Course Vital Signs 09/20/17 09/20/17 16:24 17:20 Temperature 97.6 F 97.6 F Pulse Rate 98 98 Respiratory 16 16 Rate Blood Pressure 133/82 133/82 O2 Sat by Pulse 98 98 Oximetry Medical Decision Making - Medical Decision Making This is a 32-year-old female who presents with request for Plan B. Patient had unprotected intercourse last night with the father of her daughter she gave to 2 months ago. UA test was negative. Patient given oral Levonorgestrel (Plan B) while in the emergency department. Advised patient to use contraception during intercourse to prevent future use of Plan B. States she has an appointment to have an IUD placed on October 12. Patient is in agreement. All questions were answered. - Lab Data Lab Results 09/20/17 Range/Units 16:22 Urine HCG, Qual Not Detected (Not Detectd) Disposition Clinical Impression: Family planning, emergency contraceptive counseling and prescription Disposition: HOME SELF-CARE Condition: Good Instructions: Levonorgestrel (By mouth) Additional Instructions: Please use contraception during intercourse. Please follow up with primary care provider within 1-2 days. Return to emergency department if symptoms should worsen or any concerns arise. Referrals: Sherin Valdez MD [Primary Care Provider] - 1-2 days Time of Disposition: 16:54
[2017-09-20] MEDS ORDERED: LEVONORGESTREL 1.5 MG TABLET PO STA (16:49)
== END 2017-09-20 17:20 | disposition home or self-care (01) ==
LOC: EC 16:15
DX: Z30.09 Encounter for other general counseling and advice on contraception (principal); F31.9 Bipolar disorder, unspecified; F17.200 Nicotine dependence, unspecified, uncomplicated; Z32.02 Encounter for pregnancy test, result negative; Z79.899 Other long term (current) drug therapy
CPT/HCPCS: 81025; 99282

== ENCOUNTER 2020-06-08 20:14 | Observation (INO) | payer OTHER ==
[2020-06-08] MEDS ORDERED: NALOXONE 0.4 MG/ML 1 ML VIAL IV PRN (21:19)
[2020-06-08] MEDS ORDERED: HEPARIN SODIUM,PORCINE 10,000 UNIT/ML 1 ML VIAL IV ONE (21:21)
[2020-06-08] MEDS ORDERED: HEPARIN SODIUM,PORCINE 5,000 UNIT/ML 1 ML VIAL IV PRN (21:21)
--- NOTE | 2020-06-08 21:25 | ED ---
General Adult HPI - General Chief complaint: Recheck/Abnormal Lab/Rx Stated complaint: SOB Time Seen by Provider: 06/08/20 20:48 Source: patient Mode of arrival: ambulatory Limitations: no limitations - History of Present Illness Initial comments: 34-year-old female patient presents to the emergency department today as a private vehicle transfer from [facility]. Patient had recent anterior cervical surgery. States a few days ago started develop swelling to her lower extremity, worse on the right side. Outpatient ultrasound of the right leg yesterday which showed DVT in the femoral vein. Patient states that she went back today for treatment when they noticed she was short of breath so she was sent to the emergency department. She had angiography of her chest which showed bilateral pulmonary embolisms. Patient refused ambulance transfer from the other hospital and came here by private vehicle for further evaluation. Patient states she is experiencing mild shortness of breath at this time. Denies any cough or chest pain. States she has mild discomfort and swelling to the right leg. Denies history of DVT. Denies any syncope or dizziness. Denies chance of . Patient denies any recent rash, fever, chills, abdominal pain, nausea, vomiting, diarrhea, constipation, back pain, numbness, tingling, weakness, hematuria, dysuria, urinary urgency, urinary frequency, headache, visual changes, or any other complaints. - Related Data Home Medications Medication Instructions Recorded Confirmed Loratadine [Claritin] 10 mg PO DAILY PRN 03/26/17 08/05/17 Citalopram Hydrobromide [CeleXA] 10 mg PO DAILY 08/05/17 08/05/17 HYDROcodone/APAP 10-325MG [[place] 1 tab PO TID PRN 08/05/17 08/05/17 10-325] Previous Rx's Medication Instructions Recorded Ciprofloxacin HCl [Cipro] 500 mg PO Q12HR #14 tablet 08/05/17 Ibuprofen [Motrin] 600 mg PO Q8HR PRN #30 tab 08/05/17 Ibuprofen [Motrin] 600 mg PO Q8HR PRN #30 tab 10/10/17 Penicillin V Potassium [Pen Vee K] 500 mg PO QID #40 tablet 10/10/17 Allergies Allergy/AdvReac Type Severity Reaction Status Date / Time No Known Allergies Allergy Verified 06/08/20 20:33 Review of Systems ROS Statement: Those systems with pertinent positive or pertinent negative responses have been documented in the HPI. ROS Other: All systems not noted in ROS Statement are negative. Past Medical History Past Medical History: Asthma Additional Past Medical History / Comment(s): chronic back pain History of Any Multi-Drug Resistant Organisms: None Reported Past Surgical History: Back Surgery Additional Past Surgical History / Comment(s): cervical Past Psychological History: Anxiety, Bipolar, Depression, Panic Disorder, Schizoaffective Disorder Smoking Status: Current every day smoker Past Alcohol Use History: Rare Past Drug Use History: Marijuana General Exam Limitations: no limitations General appearance: alert, in no apparent distress, other (this is a well- developed, well-nourished adult female patient in no acute distress. 98.2F, pulse 100, respirations 18, blood pressure 124/73, pulse ox 99% on room air.) Eye exam: Present: normal appearance, PERRL, EOMI. Absent: scleral icterus, conjunctival injection, periorbital swelling ENT exam: Present: normal exam, normal oropharynx, mucous membranes moist Respiratory exam: Present: normal lung sounds bilaterally. Absent: respiratory distress, wheezes, rales, rhonchi, stridor Cardiovascular Exam: Present: regular rate, normal rhythm, normal heart sounds. Absent: systolic murmur, diastolic murmur, rubs, gallop, clicks GI/Abdominal exam: Present: soft, normal bowel sounds. Absent: distended, tenderness, guarding, rebound, rigid Extremities exam: Present: full ROM, normal capillary refill, other (Generalized right leg swelling. Skin is pink, warm, dry. Pedal and posttibial pulses are 2+ and equal bilaterally.). Absent: tenderness, pedal edema, joint swelling, calf tenderness Neurological exam: Present: alert, oriented X3, CN II-XII intact Psychiatric exam: Present: normal affect, normal mood Skin exam: Present: warm, dry, intact, normal color. Absent: rash Course Vital Signs 06/08/20 20:28 Temperature 98.2 F Pulse Rate 100 Respiratory 18 Rate Blood Pressure 124/73 O2 Sat by Pulse 99 Oximetry Medical Decision Making - Medical Decision Making 34-year-old female patient presented to the emergency department today for evaluation after being diagnosed with pulmonary embolisms and DVT of the right leg. She was transferred to this hospital, she did refuse EMS transport Patient had a recent neck surgery. Patient is experiencing mild shortness of breath, does not appear to be in respiratory distress. There is mild swelling of the right leg, pulses are intact. Labs reviewed from the previous hospital showed negative troponin. D-dimer was 3.03. PT INR were unremarkable. PTT is 27. She did receive a dose of Lovenox earlier today. She had CT angiography of the chest which showed bilateral pulmonary emboli, left greater than the right. She also had an ultrasound which indicated a DVT in the right femoral vein. She'll be admitted to the hospital on high-dose heparin. Vascular be consulted. Patient is agreeable to this plan. - Radiology Data Radiology results: report reviewed Disposition Clinical Impression: Bilateral pulmonary embolism, Right leg DVT Disposition: ADMITTED IP TO THIS [facility] Condition: Serious Referrals: Sherin Valdez MD [Primary Care Provider] - 1-2 days Decision to Admit Reason: Admit from EC Decision Date: 06/08/20 Decision Time: 21:30
[2020-06-08] MEDS ORDERED: HEPARIN SOD,PORK IN 0.45% NACL 25,000 UNIT in 0.45% NACL 1 250ML.BAG IV SCH (21:30)
[2020-06-08] MEDS ORDERED: SODIUM CHLORIDE 0.9% 1,000 ML IV SCH (21:30)
[2020-06-08] MEDS ORDERED: methocarbamoL 500 MG TAB PO PRN (23:22)
[2020-06-08] MEDS ORDERED: DOCUSATE 100 MG CAP PO PRN (23:22)
[2020-06-09] MEDS: GABAPENTIN 300 MG CAP PO SCH ×3 (00:02→16:22)
[2020-06-09 00:26] VITALS: RESP 16
[2020-06-09 03:32] LABS: Basophils # (A) 0.1 k/uL (0-0.2); Basophils % (A) 1 %; Eosinophils # (A) 0.4 k/uL (0-0.7); Eosinophils % (A) 3 %; HGB 14.3 gm/dL (11.4-16.0); Lymphocytes # (A) 3.4 k/uL (1.0-4.8); Lymphocytes % (A) 27 %; MCH 30.7 pg (25.0-35.0); MCHC 32.5 g/dL (31.0-37.0); MCV 94.3 fL (80.0-100.0); Mean Platelet Volume 9.1; Monocytes # (A) 0.5 k/uL (0-1.0); Monocytes % (A) 4 %; Neutrophils # (A) 8.3 k/uL (1.3-7.7); Neutrophils % (A) 65 %; Platelet Count 298 k/uL (150-450); RBC 4.67 m/uL (3.80-5.40); RDW 12.8 % (11.5-15.5); WBC 12.8 k/uL (3.8-10.6)
--- NOTE | 2020-06-09 09:22 | P.HPIM ---
History of Present Illness This is a pleasant 54 years old female with past medical history of asthma, chronic back pain, anxiety, depression, bipolar disorder and schizoaffective disorder. Patient was transferred from [facility] patient presents because of one-day of dyspnea. She is to follow up with Dr. Lisa Puente. Dr. Del Cid for her spine disease and she recently had surgery for her neck, she states that this is a spine surgery however there is small incision about 1 inch in the front of her lower neck, patient states that she started in the hospital for 1 day on 05/26. She developed right leg pain and swelling and she called her surgeon who was at her report and instructed her to go to emergency room. They found a right leg DVT as per patient and they gave her a shot of Lovenox with recommendation to follow up with her PCP, however while she was living in the hospital she noticed shortness of breath and emergency room team updated CT of the chest and found to have bilateral PE and referred her to this [facility]. Patient who has [id number] back pain/chest pain felt like sharp and get worse with breathing and about 6/10, increased with movement as well. She has some cough but no phlegm. No tachypnea or dyspnea while she is at rest. No change in urine or bowel habits. She denies clotting disease in the family, she denies oral contraceptive pills and she was IUD. She agrees to do test Also she was on amoxicillin prescribed by her PCP about a week ago for 10 days for small abscess which is healing in her left breast and probably also because of her. She's affective disorder was reported part of her medical history however patient denies she says she has generalized anxiety, OCD and borderline personality disorder but no bipolar disorder, she's been treated by her PCP Dr. Paz with Ativan as needed, she states that she was at about 5-6 times a year. And she agrees to see a psychiatrist while in hospital. She denies suicidal ideation or hallucination Vital signs stable. In [facility] that shown troponin is negative less than 0.01, d-dimer is elevated at 3.0, magnesium was normal at 2.0, sodium 138, potassium 3.9, liver enzymes not elevated with ALT 11 and AST 12, creatinine 0.8, glucose 89, bilirubin is normal at 0.5, INR is normal 1.0, lactic acid is 0.5, WBC is normal level at 11 K, hemoglobin 14.5, platelet count 313K. CTA of the chest was done with IV contrast and [facility] and report by radiologist showing pulmonary emboli in the arterial branches supplying left upper lobe and left lower lobe. The lesser extent small medial right lower lobe pulmonary embolism also noted. No large central embolism. And aorta is unremarkable with no aneurysm or dissection. No lung consolidation or masses. Patient received Lovenox 80 mg once a started on [place] Currently patient is on heparin drip MAPS was checked and she was on oxycodone 5 mg and gabapentin 300 mg Review of Systems CONSTITUTIONAL: No fever, no malaise, no fatigue. HEENT: No recent visual problems or hearing problems. Denied any sore throat. CARDIOVASCULAR: No orthopnea, PND, no palpitations, no syncope. PULMONARY: no hemoptysis. GASTROINTESTINAL: No diarrhea, no nausea, no vomiting, no abdominal pain. Normoactive bowel sounds. NEUROLOGICAL: No headaches, no weakness, no numbness. HEMATOLOGICAL: Denies any bleeding or petechiae. GENITOURINARY: Denies any burning micturition, frequency, or urgency. MUSCULOSKELETAL/RHEUMATOLOGICAL: Denies any joint pain, swelling, or any muscle pain. ENDOCRINE: Denies any polyuria or polydipsia. Past Medical History Past Medical History: Asthma Additional Past Medical History / Comment(s): chronic back pain History of Any Multi-Drug Resistant Organisms: None Reported Past Surgical History: Back Surgery Additional Past Surgical History / Comment(s): cervical Past Psychological History: Anxiety, Bipolar, Depression, Panic Disorder, Schizoaffective Disorder Smoking Status: Current every day smoker Past Alcohol Use History: Rare Past Drug Use History: Marijuana Medications and Allergies Home Medications Medication Instructions Recorded Confirmed Type Docusate [Colace] 100 mg PO BID PRN 06/08/20 06/08/20 History Gabapentin [Neurontin] 900 mg PO TID 06/08/20 06/08/20 History Loratadine 10 mg PO DAILY 06/08/20 06/08/20 History methocarbamoL [Robaxin] 500 mg PO Q4H PRN 06/08/20 06/08/20 History oxyCODONE HCL [Roxicodone] 5 - 10 mg PO Q6H PRN 06/08/20 06/08/20 History Allergies Allergy/AdvReac Type Severity Reaction Status Date / Time No Known Allergies Allergy Verified 06/08/20 21:34 Physical Exam Vitals: Vital Signs Temp Pulse Pulse Resp BP BP Pulse Ox 06/09/20 08:00 97.6 F 75 16 126/87 98 06/09/20 04:00 97.8 F 74 16 115/72 97 06/09/20 00:00 97.4 F L 83 16 132/93 97 06/08/20 22:50 98.0 F 87 18 126/88 98 06/08/20 20:28 98.2 F 100 18 124/73 99 Intake and Output 06/08/20 06/09/20 06/09/20 22:59 06:59 14:59 Intake Total 101.512 0 Balance 101.512 0 Intake: Intake, IV Titration 101.512 Amount Heparin Sod,Pork in 0.45% 101.512 NaCl 25,000 unit In 0.45 % NaCl 1 250ml.bag @ 18 UNITS/KG/HR 16.329 mls/hr IV .[id number] [facility] Rx#: [id number] Oral 0 Other: Voiding Method Toilet # Voids 1 Weight 90.718 kg 94.8 kg GENERAL: The patient is alert and oriented x3, not in any acute distress. Well developed, well nourished. -HEENT: Pupils are round and equally reacting to light. EOMI. No scleral icterus. No conjunctival pallor. Normocephalic, atraumatic. No pharyngeal erythema. No thyromegaly. Small healed and closed incision in front of the lower neck, but 1 inch CARDIOVASCULAR: S1 and S2 present. No murmurs, rubs, or gallops. PULMONARY: Chest is clear to auscultation, no wheezing or crackles. ABDOMEN: Soft, nontender, nondistended, normoactive bowel sounds. No palpable organomegaly. MUSCULOSKELETAL: No joint swelling or deformity. EXTREMITIES: No cyanosis, clubbing, or pedal edema. NEUROLOGICAL: Gross neurological examination did not reveal any focal deficits. SKIN: No rashes. No petechiae Results CBC & Chem 7: 06/09/20 03:03 Labs: Abnormal Lab Results - Last 24 Hours (Table) 06/09/20 06/09/20 Range/Units 03:03 03:03 WBC 12.8 H (3.8-10.6) k/uL Neutrophils # 8.3 H (1.3-7.7) k/uL APTT 78.0 H (22.0-30.0) sec Assessment and Plan Assessment: Acute Bilateral pulmonary emboli Acute Deep venous thrombosis Small cellulitis of the left breast, healing while on amoxicillin Generalized anxiety, OCD and borderline personality disorder. Call psychiatry consult and to assess capacity History of asthma not an active issue Schizoaffective disorder and bipolar, not in active issue Plan: This is a pleasant 54 race old female who presents with PE and DVT. Continue with heparin drip, consult legal adviser. Vascular surgery or the consult. We'll consult psychiatry to assess capacity and for her anxiety disorder. Labs and medication were reviewed.. Continue same treatment. Continue with symptomatic treatment. Resume home medication. Monitor lytes and vitals. DVT and GI prophylaxis. Further recommendations of the clinical course of the patient DVT prophylaxis: heparin GI Prophylaxis: Pepcid Prognosis is guarded
[2020-06-09] MEDS ORDERED: LORATADINE 10 MG TAB PO SCH (09:55)
[2020-06-09] MEDS ORDERED: APIXABAN 5 MG TAB PO SCH (10:00)
--- NOTE | 2020-06-09 13:04 | P.GSCN ---
History of Present Illness Consult date: 06/09/20 Reason for Consult: Bilateral pulmonary embolism status post cervical neck surgery, DVT of the right lower extremity History of present illness: This is a 34-year-old female who underwent cervical neck surgery approximately 2 weeks ago at [facility]. The patient started to notice her right lower extremity swelling and painful, so called the surgeon's office who subsequently ordered a Doppler ultrasound of the right lower extremity. The right lower extremity ultrasound was positive for a femoral deep vein thrombosis. The patient then went to see her PCP who is going to start her on anticoagulation, and when she was there they had noticed that e was presenting with shortness of breath with exertion. She was sent to [facility] for a CT angiogram to rule out pulmonary embolism. Her CT angiogram was pos itive for bilateral pulmonary emboli. [facility] wanted to transfer the patient to [facility], however the patient did not want to come by ambulance and drove herself to our emergency department. She was started on a heparin drip and admitted to this hospital. The patient denies any current shortness of breath or chest pain. She does report that she has some discomfort with taking deep breaths. She is in no acute respiratory distress, O2 saturation 98% on room air, is nonlabored. She reports the swelling and redness to the right lower extremity has improved. Past medical history includes chronic back pain, anxiety, schizo-effective disorder and panic disorde r. She is a current every day smoker. Review of Systems 14 point review of systems was completed all pertinent positives and negatives as stated in the HPI Past Medical History Past Medical History: Asthma Additional Past Medical History / Comment(s): chronic back pain History of Any Multi-Drug Resistant Organisms: None Reported Past Surgical History: Back Surgery Additional Past Surgical History / Comment(s): cervical Past Psychological History: Anxiety, Bipolar, Depression, Panic Disorder, Schizoaffective Disorder Smoking Status: Current every day smoker Past Alcohol Use History: Rare Past Drug Use History: Marijuana Medications and Allergies Home Medications Medication Instructions Recorded Confirmed Type Docusate [Colace] 100 mg PO BID PRN 06/08/20 06/08/20 History Gabapentin [Neurontin] 900 mg PO TID 06/08/20 06/08/20 History Loratadine 10 mg PO DAILY 08/13/20 08/13/20 History methocarbamoL [Robaxin] 1,000 mg PO Q8HR PRN 06/08/20 06/09/20 History oxyCODONE HCL [Roxicodone] 5 - 10 mg PO Q6H PRN 06/08/20 06/08/20 History Apixaban [Eliquis] 10 mg PO BID 30 Days tab 06/09/20 Rx Allergies Allergy/AdvReac Type Severity Reaction Status Date / Time No Known Allergies Allergy Verified 06/08/20 21:34 Surgical - Exam Vital Signs Temp Pulse Resp BP Pulse Ox 98.2 F 100 18 124/73 99 06/08/20 20:28 06/08/20 20:28 06/08/20 20:28 06/08/20 20:28 06/08/20 20:28 General appearance: The patient is alert, oriented, in no acute distress. HET: Head is normocephalic and atraumatic. Pupils are equal and reactive. Oropharynx is clear without lesions. Neck: Supple without lymphadenopathy. Trachea midline. Heart: S1 S2. Regular rate and rhythm. Lungs: No crackles or wheezes are heard. Clear to auscultation bilaterally. Nonlabored Extremities: Normal skin color and turgor. Palpable bilateral femoral and pedal pulses. Mild swelling of the right lower extremity. Neurological: No focal deficits. Strength and sensation are grossly intact. Results CT angiogram reviewed from copy in chart. - Labs 06/09/20 03:03 Abnormal Lab Results - Last 24 Hours (Table) 06/09/20 06/09/20 Range/Units 03:03 03:03 WBC 12.8 H (3.8-10.6) k/uL Neutrophils # 8.3 H (1.3-7.7) k/uL APTT 78.0 H (22.0-30.0) sec Assessment and Plan Assessment: 1. Bilateral pulmonary emboli, provoked 2. Right lower extremity deep vein thrombosis 3. Status post cervical neck surgery approximately 2 weeks ago 4. Tobacco abuse Plan: Will discontinue heparin drip and start on Eliquis 10 mg twice a day for 7 days then 5 mg twice a day for 3 months. Smoking cessation advised. Patient is cleared for discharge from vascular surgical standpoint, when otherwise medically cleared. Patient to follow-up with Dr. Gaytan in the office. Thank you for this consultation allowing us take part plan of care of your patient during her hospital stay. The above dictated assessment and findings were discussed with Dr. Gaytan. The impression and plan of care have been directed as dictated.
[2020-06-09 14:00] LABS: ALT 11 U/L (4-34); AST 21 U/L (14-36); African American GFR (CKD) >90 (>60 ml/min/1.73 sqM); Albumin 4.1 g/dL (3.5-5.0); Alkaline Phosphatase 82 U/L (38-126); Anion Gap 6 mmol/L; Blood Urea Nitrogen 10 mg/dL (7-17); Calcium 9.7 mg/dL (8.4-10.2); Carbon Dioxide 27 mmol/L (22-30); Chloride 105 mmol/L (98-107); Glucose 100 mg/dL (74-99); Non-African American GFR(CKD) >90 (>60 ml/min/1.73 sqM); Potassium 4.6 mmol/L (3.5-5.1); Sodium 138 mmol/L (137-145); Total Bilirubin 0.5 mg/dL (0.2-1.3); Total Protein 6.8 g/dL (6.3-8.2)
--- NOTE | 2020-06-09 15:50 | CONS ---
CONSULTATION REASON FOR CONSULTATION: Anxiety and OCD. IDENTIFYING DATA: The patient is 34, single female with medical history of asthma, chronic back pain and recently she has neck surgery and she was admitted to the hospital with complaints of shortness of breath. HISTORY OF PRESENT ILLNESS: Patient stated that she has been suffering from anxiety and bipolar since her early teens. However, over the last 3 or 4 years she has been able to cope with it with "natural supplement." She stated that she has been using medical marijuana on daily basis since 2016 and Kratom. The patient stated that she did try to all the psychotropic medication and nothing that helped her except "Ativan." Today, she denied any depressive symptom. She denied feeling hopeless or helpless. She stated that she has anxiety and worries and she is in the hospital, and her 3-year-old daughter in daycare. PAST PSYCHIATRIC HISTORY: She has history of self-mutilation behavior or cutting herself since age 16. She stated that she stopped for 10 years, but in January of 2020 she did try to cut herself, but she did not seek any medical help. According to her, she had at least 14 inpatient psych hospitalization. The first one it was at age 13, the last 1 in 2009. She was in our facility at least 7 times, the last time she was in 2009. She was seen at [facility] for 10 years, but she stopped completely in 2016. According to her, she has a different diagnosis between borderline personality disorder, anxiety, bipolar disorder. She stated that she tried everything and she found out "that the natural supplement is the best." SUBSTANCE ABUSE HISTORY: Extensive history of substance abuse, history of alcohol, methamphetamine and cocaine use. Mushroom, she stated that she started over the last 10 years and the last time she used mushroom it was December of 2019. According to her, "I just used small dose and it does change my outlook on life." Also, she has been on medical marijuana for the last 3 years. In addition, she has been using Kratom. She stated that she has been ordering this online. FAMILY HISTORY OF PSYCHIATRIC ILLNESS: Mother, cousin and aunt are on anxiety medications. BRIEF SOCIAL HISTORY: Patient is single, [place] She has 1 daughter who is 3 years of age. She stated that the father of her daughter is currently in half-way. 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 She has one brother and one half-sister. MENTAL STATUS EXAMINATION: The patient is overweight, female, has a lot of tattoos and pierced tongue. She was cooperative, pleasant. She denied any depressive symptoms. She denied any psychotic feature. She is alert, oriented x3. Her memory is grossly intact. Her insight and judgment are fair. DIAGNOSES: 1. Anxiety disorder, unspecified, rule out substance induced anxiety disorder. 2. Marijuana use disorder and Kratom use disorder. PLAN: The patient does not meet any criteria for inpatient and I told her I would not prescribe any habit-forming drug like Ativan due to her past history of addiction and she did verbalize understanding and she did agree with me. She was instructed to go back to [facility] if she needed psychiatrist sign-off this. Thank you for consultation. ZINA / DORA: [id number] /
[2020-06-09 16:32] VITALS: BP 141/83; PULSE 78; TEMP 98
== END 2020-06-09 16:51 | disposition left against medical advice (07) ==
LOC: EC 20:14 → 3SCARD 21:54
PROVIDERS: ADMIT Internal Medicine; ATTEND Internal Medicine
DX: I26.99 Other pulmonary embolism without acute cor pulmonale (principal); E66.3 Overweight; F12.90 Cannabis use, unspecified, uncomplicated; F17.200 Nicotine dependence, unspecified, uncomplicated; F25.9 Schizoaffective disorder, unspecified; F31.9 Bipolar disorder, unspecified; F41.0 Panic disorder [episodic paroxysmal anxiety]; F41.1 Generalized anxiety disorder; F42.9 Obsessive-compulsive disorder, unspecified; F60.3 Borderline personality disorder; I82.411 Acute embolism and thrombosis of right femoral vein; J45.909 Unspecified asthma, uncomplicated; N61.0 Mastitis without abscess; Z79.01 Long term (current) use of anticoagulants; Z79.899 Other long term (current) drug therapy; Z91.5 Personal history of self-harm; M54.9 Dorsalgia, unspecified; G89.29 Other chronic pain
CPT/HCPCS: 96376 ×2; 96374; 99285; 93005; 80053; 85025; 85730; 84703; G0378 ×2; J1644 ×2

== ENCOUNTER → 2022-01-01 | Outpatient (CLI) | payer OTHER ==
[2022-01-01 18:30] LABS: Total Protein,CSF 40 mg/dL (12-60)
[2022-01-01 21:23] LABS: Appearance,CSF Clear; CSF Tube Number 4; CSF Tube Volume 3; Nucleated Cells, CSF 0 u/L (0-5); Red Blood Cell,CSF 0 u/L (0-10)
== END | disposition home or self-care (01) ==
LOC: LABWHC1 10:32
PROVIDERS: ATTEND Physician Assistant
DX: G35 Multiple sclerosis (principal)
CPT/HCPCS: 36415; 82040; 82042; 82784; 83916; 84157; 87801; 89050